=== PATIENT | male | born 1990 | race Caucasian/White ===

== ENCOUNTER 2016-06-13 17:26 | Inpatient (IN) | payer OTHER ==
--- NOTE | ~2016-06-13 | HP ---
Unit #: [id number] #: [id number] Patient: ALEX TUCKER [id number] [facility] [address] [place] [address] [id number] MR#: [id number] NAME: ALEX TUCKER ROOM: [facility] Age: 26 Sex: M Admission Date: 06/13/2016 : 1990 Attending Physician: Howard Christianson M.D. Admitting Physician: Howard Christianson M.D. Primary Care Physician: Generic Doctor Not In System HISTORY AND PHYSICAL HISTORY OF PRESENT ILLNESS Alex is a 26 year old admitted to [facility] because of his abuse of alcohol. PAST MEDICAL HISTORY Long history of alcohol abuse. PAST SURGICAL HISTORY Nothing reported. ALLERGIES No known drug allergies. SOCIAL HISTORY Smokes 1 pack per day. Drinks at least half gallon of liquor a week and admits to using marijuana on occasion. FAMILY HISTORY Medically noncontributory. REVIEW OF SYSTEMS CONSTITUTIONAL: No fever or chills. HEENT: Denies any sore throat, ear pain or runny nose. CARDIOVASCULAR: Denies chest pain, irregular heart rhythm or palpitations. CHEST: Denies shortness of breath or cough. No hemoptysis. GASTROINTESTINAL: Denies nausea, vomiting, diarrhea or chronic constipation. ENDOCRINE: Denies history of increased thirst or urination. No recent significant weight loss or gain. GENITOURINARY: Denies dysuria, frequency, or hematuria. SKIN: Denies any rashes. HEMATOLOGIC: Denies history of increased bleeding or bruising. MUSCULOSKELETAL: Denies any hot, swollen joints. No generalized muscle pain. NEUROLOGIC: Denies problems with vision or speech. No frequent, severe headaches. No numbness, tingling or weakness in any extremities. Denies loss of bladder or bowel control. CURRENT MEDICATIONS Detox protocol. PHYSICAL EXAMINATION GENERAL: Alert, well-nourished, in no apparent distress. VITAL SIGNS: Blood pressure 128/88, heart rate 80, respirations 16, Unit #: [id number] #: [id number] Patient: ALEX TUCKER temperature 98.6. WEIGHT: 180. HEIGHT: 6 feet 0 inches. SKIN: Warm and dry without rash or lesion. HEENT: Normocephalic. TMs not viewed. Oral and nasal passages clear. Conjunctivae clear. PERRLA. EOMs intact. NECK: Supple without lymphadenopathy or thyromegaly. HEART: Regular rate and rhythm without murmur. LUNGS: Clear. ABDOMEN: Soft, nontender. : Not done. EXTREMITIES: No evidence of cyanosis, clubbing or edema. Moves all without focal deficit. NEUROLOGICAL: Grossly within normal limits. Cranial Nerves: II: Visual reyes are intact. III, IV AND : Extraocular movements are intact. Pupils are equal, round and reactive to light. V: Facial sensation is grossly normal. VII: Facial movements and expression are normal. VIII: Auditory acuity grossly intact. IX, X: Uvula is midline. Phonation is normal. XI: Patient shrugs shoulders and turns head normally. XII: Tongue protrudes in the midline. Sensory and Motor Function: Sensory and motor sensation is grossly normal. Motor: moves all extremities well. Coordination: Gait is normal. Deep Tendon Reflexes: Intact. IMPRESSION Psychiatric admission. RECOMMENDATIONS PSYCHIATRIC: Per psychiatrist. MEDICAL: See no contraindications to participate in facility's activities. MEDICAL PROGNOSIS Good. MEDICAL CONDITION Stable. Dictated by... Sherry Kc P.A.-C. for Hollie Malone/usha TD: 06/14/2016 17:48 JOB #: [id number] Unit #: [id number] #: [id number] Patient: ALEX TUCKER HISTORY AND PHYSICAL Page 1 of 1 X Sherry Kc HISTORY AND PHYSICAL
--- NOTE | ~2016-06-13 | DS ---
Unit #: [id number] #: [id number] Patient: ASIF TUCKER [id number] [facility] [address] [place] [address] [id number] MR#: [id number] NAME: ASIF TUCKER ROOM: [facility] Age: 26 Sex: M Admission Date: 06/13/2016 : 1990 Discharge Date: 06/17/2016 Attending Physician: Howard Christianson M.D. Primary Care Physician: Generic Doctor Not In System DISCHARGE SUMMARY REASON FOR ADMISSION Detox. DIAGNOSTIC STUDIES LABORATORY RESULTS: Remarkable for urine drug screen positive for benzodiazepine and marijuana. HOSPITAL COURSE The patient was admitted to inpatient unit on 06/13/2016 and discharged on 06/17/2016. The patient was treated with group therapy, individual therapy, medication management. The patient responded well with the above modalities of treatment and following medication. Subsequently, the patient was discharged with a plan to follow up in outpatient clinic. DISCHARGE MEDICATIONS Vistaril 50 mg t.i.d. for anxiety, Celexa 20 mg daily for depression, Zyprexa 10 mg at bedtime for mood stabilization. DISCHARGE DIAGNOSES Psychiatric: 1. Alcohol use disorder, severe, F10.20. 2. Mood disorder, not otherwise specified, F32.9. Secondary diagnosis: Deferred. Medical diagnosis: Hepatitis C. Stressors: Psychosocial stressors. DISCHARGE INSTRUCTIONS The patient to follow up in outpatient clinic as per nursing home social worker. CONDITION ON DISCHARGE The patient was pleasant and cooperative. Denied any psychotic symptom or any suicidal ideation. PROGNOSIS Guarded. DIET AND ACTIVITY As tolerated. Dictated by... Unit #: [id number] #: [id number] Patient: ASIF TUCKER Hollie Noonan/bin TD: 06/19/2016 05:28 JOB #: [id number] DISCHARGE SUMMARY Page 1 of 1 X Howard Christianson MD X DISCHARGE SUMMARY
--- NOTE | ~2016-06-13 | PN ---
Unit #: [id number] #: [id number] Patient: ALEX MAR [id number] [facility] [address] [place] [address] [id number] MR#: [id number] NAME: ALEX MAR ROOM: [facility] Age: 26 Sex: M Admission Date: 06/13/2016 : 1990 Attending Physician: Howard Christianson M.D. Admitting Physician: Howard Christianson M.D. Primary Care Physician: Generic Doctor Not In System [facility] PROGRESS NOTES DATE OF SERVICE: 06/16/2016 DISCUSSION Alex Mar is a 26-year-old male, seen on 06/16/2016. The patient interviewed, chart reviewed, and obtained information from nursing staff. The patient was compliant and cooperative. Mood was sad, dysphoric, flat affect, guarded, but able to maintain safe behavior. The patient denied any side effects from medication. Complete review of systems unremarkable. MENTAL STATUS EXAMINATION General appearance, the patient dressed casually. Attention span and concentration, fair. Oriented in place and person. Mood and affect; sad, dysphoric, flat. Speech, monotone. Thought process, concrete. The patient denied any thoughts of harming self or others, but guarded. Recent and remote memory, poor. Insight and judgment, poor. DIAGNOSIS Mood disorder, not otherwise specified. ASSESSMENT AND PLAN Advised to continue with current combination of Zyprexa, Vistaril, and Celexa. If needed, consider further adjustment of medication. Dictated by... Hollie Noonan/bin TD: 06/17/2016 22:35 JOB #: [id number] [facility] PROGRESS NOTES Page 1 of 1 X Howard Christianson MD X PROGRESS NOTE
--- NOTE | ~2016-06-13 | PN ---
Unit #: [id number] #: [id number] Patient: ALEX MAR [id number] [facility] [address] [place] [address] [id number] MR#: [id number] NAME: ALEX MAR ROOM: [facility] Age: 26 Sex: M Admission Date: 06/13/2016 : 1990 Attending Physician: Howard Christianson M.D. Admitting Physician: Howard Christianson M.D. Primary Care Physician: Generic Doctor Not In System [facility] PROGRESS NOTES DATE 06/15/2016 DISCUSSION Alex Mar is a 26-year-old male seen on 06/15/2016. The patient compliant and cooperative. Mood sad, dysphoric, anxious nervous. The patient reported having a lot of problem with the anxiety, mood lability, sad, depressed, anxious. Vital signs stable 98.4, 81, 119/79. Complete review of systems unremarkable. MENTAL STATUS EXAMINATION General appearance, the patient dressed casually. Attention span and concentration fair. Oriented to place and person. Mood and affect sad, dysphoric. Speech monotone. Thought process concrete patient denied any thoughts of harming self or others. Recent and remote poor. Insight and judgement poor. DIAGNOSES Alcohol use disorder severe Mood disorder NOS ASSESSMENT/PLAN Advise to start the patient on Celexa 20 mg daily, Vistaril to 50 mg three times day and Zyprexa 10 mg at bedtime for mood stabilization. If needed consider adjustment of medication. Dictated by... Hollie Noonan/miguel TD: 06/17/2016 05:02 JOB #: [id number] Unit #: [id number] #: [id number] Patient: ALEX MAR [facility] PROGRESS NOTES Page 1 of 1 X Howard Christianson MD PROGRESS NOTE
--- NOTE | ~2016-06-13 | PA ---
Unit #: [id number] #: [id number] Patient: ASIF TUCKER [id number] [facility] [address] [place] [address] [id number] MR#: [id number] NAME: ASIF TUCKER ROOM: [facility] Age: 26 Sex: M Admission Date: 06/13/2016 : 1990 Date of Assessment: Attending Physician: Howard Christianson M.D. Admitting Physician: Howard Christianson M.D. PSYCHIATRIC ASSESSMENT INFORMANTS The patient reliability, fair informant and chart reliability, good. CHIEF COMPLAINT Detox from alcohol. HISTORY OF PRESENT ILLNESS Mr. Johnson is a 26-year-old male, seen on . The patient well known to us from his previous admission in 12/2015. The patient lives at home with his mother and father. The patient presented with suicidal ideation with no specific plan. The patient denied any homicidal ideation. Reported drinking half a gallon of vodka daily. The patient reported using for the last few months. The patient reported recent relapse after receiving treatment approximately a month ago at [facility]. The patient reported financial and relational stressors. The patient was guarded during interview, but able to answer questions appropriately. PAST PSYCHIATRIC HISTORY Remarkable for history of previous treatment at [facility] as mentioned above. FAMILY HISTORY AND SOCIAL HISTORY The patient lives with his parents. The patient's family history is unknown for any history of any psychiatric illness in the family or substance abuse. No history of any developmental delays. No legal problems. The patient denied any history of physical, sexual, or emotional abuse. MEDICAL HISTORY Unremarkable for any chronic medical illness. Musculoskeletal; muscle strength and tone, no atrophy or abnormal movement. Gait normal. MEDICATION HISTORY None. ALLERGIES No known drug allergies. SUBSTANCE ABUSE HISTORY The patient reported tobacco use, age of onset 18; alcohol, age of onset 19; and marijuana, age of onset 19. Longest period of sobriety one month. Last period of sobriety on 01/08/2016. The patient reported history of blackouts and withdrawal symptoms. No history of any HIV, hepatitis, or Unit #: [id number] #: [id number] Patient: ASIF TUCKER any IV drug use. The patient currently reporting having abdominal cramping, muscle cramping, diaphoresis, diarrhea, depressed mood, irritability, nervousness, poor appetite, poor concentration, restlessness, sleep problems, and unpleasant dreams. REVIEW OF SYSTEMS HEENT: Eyes, clear. Ears, nose, mouth, and throat; clear. CARDIOVASCULAR: Unremarkable. RESPIRATORY: Unremarkable. GI: Unremarkable. : Unremarkable. SKIN: Unremarkable. LYMPH NODE: Unremarkable. NEUROLOGIC: Unremarkable. ENDOCRINE: Unremarkable. HEMATOLOGIC: Unremarkable. ALLERGIC/IMMUNOLOGIC: Unremarkable. MUSCULOSKELETAL: Muscle strength and tone, no atrophy or abnormal movement. Gait normal. MENTAL STATUS EXAMINATION CONSTITUTIONAL: Measurement of vital signs; temperature 98.7, heart rate 97, respiratory rate 16, blood pressure 128/89, height 6 feet, and weight 180 pounds. GENERAL APPEARANCE: The patient dressed casually. The patient did not show any facial deformity. MUSCULOSKELETAL: Please see above. PSYCHIATRIC EXAMINATION Description of speech, regular rate and normal volume. Description of thought process, goal directed. Description of association, intact. Description of abnormal psychotic thinking; the patient was somewhat guarded, paranoid, sad, depressed, and suicidal ideation. Denied any homicidal ideation. Substance abuse. Description of the patient's judgment: Concerning everyday activity, poor. Social situation, poor. Concerning psychiatric condition, poor. Complete mental status examination; oriented in time, place, and person. Recent and remote memory, fair. Attention span and concentration, fair. Language, able to name object and repeat phrases. Fund of knowledge, aware of current event and passive vocabulary intact. Mood and affect, sad and dysphoric. Insight and judgment, fair to slightly impaired. ASSETS AND LIABILITIES Assets, the patient is articulate and able to take care of his ADL. Liability, history of substance abuse and depression. ADMITTING DIAGNOSES Psychiatric: Alcohol use disorder, severe, F10.20 and mood disorder, not otherwise specified, F32.9. Secondary diagnosis: Deferred. Medical diagnosis: Hepatitis C. Stressors: Psychosocial stressors. PSYCHIATRIC PLAN AND TREATMENT GOAL AND DISCHARGE PLAN Unit #: [id number] #: [id number] Patient: ASIF TUCKER 1. Advised to admit the patient on the inpatient unit. Provide safe, supportive, and structured environment. 2. Ordered labs; CBC, CMP, UA, and UDS. 3. Precaution for self-harm, SC1 precaution, detox protocol, and detox monitoring. 4. The patient to attend all the programing on the inpatient unit including group therapy, individual therapy, and medication management. TREATMENT GOAL To attain euthymic mood, gain insight into his problem, and learn coping skills. DISCHARGE PLAN Plan to stabilize the patient and consider followup in outpatient program. ESTIMATED LENGTH OF STAY 5 days. Dictated by... Howard Christianson M.D. [place]/bin TD: 06/14/2016 15:41 JOB #: [id number] PSYCHIATRIC ASSESSMENT Page 1 of 1 X Howard Christianson MD X PSYCHIATRIC ASSESSMENT
[2016-06-14 09:23] LABS: BASOPHIL% 0.6 % (0-2.5); EOSINOPHIL# 0.4 X10e3 (0-0.7); EOSINOPHIL% 7.1 % (0.0-7.0); HEMATOCRIT 45.2 % (38.0-50.0); HEMOGLOBIN 15.1 gm/dL (13.0-16.0); LYMPHOCYTE# 1.5 X10e3 (1.0-3.5); LYMPHOCYTE% 26.8 % (17.0-45.0); MEAN CORPUSCULAR HGB CONC 33.4 g/dL (30-36); MEAN PLATELET VOLUME 8.5 FL (6.5-11.5); MONOCYTE# 0.5 X10e3 (0-1.0); MONOCYTE% 7.9 % (3.0-12.0); NEUTROPHIL# 3.3 X10e3 (1.5-7.1); NEUTROPHIL% 57.6 % (40-75); PLATELET COUNT 189 X10e3 (140-420); RED BLOOD COUNT 4.57 X10e (3.90-5.60); RED CELL DISTRIBUTION WIDTH 14.7 % (11.0-15.5); WHITE BLOOD COUNT 5.8 X10e3 (4.0-10.5)
[2016-06-14 09:29] LABS: DIFF IND NO
[2016-06-14 09:44] LABS: THYROID STIMULATING HORMONE 0.61 uIU/ml (0.34-5.60)
[2016-06-14 09:51] LABS: FREE THYROXIN (T4) 0.98 ng/dL (0.58-1.64)
[2016-06-14 10:11] LABS: ALBUMIN SERUM 4.4 g/dL (3.5-5.0); BILIRUBIN,TOTAL 0.9 mg/dL (0.2-2.0); BUN/CREATININE RATIO 15.71; CALCIUM SERUM 9.8 mg/dL (8.4-10.2); CREATININE SERUM 0.7 mg/dL (0.6-1.4); GLOM FILT RATE Estimated 131.2 mL/min (>60); POTASSIUM 4.1 mmol/L (3.5-5.1)
[2016-06-15 12:21] LABS: URINE APPEARANCE TURBID; URINE BILIRUBIN NEG (NEG); URINE BLOOD NEG (NEG); URINE COLOR DK YELLOW; URINE GLUCOSE NEG (NEG); URINE KETONE NEG (NEG); URINE LEUKOCYTE ESTERASE NEG (NEG); URINE NITRATE NEG (NEG); URINE PROTEIN NEG (NEG); URINE SPECIFIC GRAVITY 1.026 (1.003-1.035)
[2016-06-15 12:50] LABS: AMPHETAMINE NEG (NEG); BARBITURATES NEG (NEG); BENZODIAZEPINES POS (NEG); COCAINE NEG (NEG); MARIJUANA POS (NEG); OPIATES NEG (NEG); TRICYCLIC ANTIDEPRESSANTS NEG (NEG); U METHADONE NEG (NEG)
== END 2016-06-17 12:15 | disposition home or self-care (01) | DRG 897 ==
LOC: P1E 17:26 → P2L 06-15 13:33
PROVIDERS: Psychiatry & Neurology Psychiatry
DX: F10.20 Alcohol dependence, uncomplicated (principal); F39 Unspecified mood [affective] disorder; F32.9 Major depressive disorder, single episode, unspecified; B19.20 Unspecified viral hepatitis C without hepatic coma; F17.200 Nicotine dependence, unspecified, uncomplicated; F41.9 Anxiety disorder, unspecified
CPT/HCPCS: 80053; 80307; 81003; 84439; 84443; 85025; 86592